=== PATIENT | female | born 1940 | race Caucasian/White ===

== ENCOUNTER 2021-06-30 12:03 | Emergency (ER) | payer OTHER ==
--- NOTE | 2021-06-30 14:28 | RAD REPORT ---
EXAM DESCRIPTION: RAD - Lumbar Spine 3 Views - 06/30/2021 1:50 pm CLINICAL HISTORY: Back pain FINDINGS: The alignment of the lumbar spine is satisfactory. No fracture or dislocation is seen. Mild spondylosis involves the lumbar spine. Bones are osteoporotic. 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
--- NOTE | 2021-06-30 14:29 | RAD REPORT ---
EXAM DESCRIPTION: RAD - Pelvis - 06/30/2021 1:50 pm CLINICAL HISTORY: Pelvic pain status post injury FINDINGS: No fracture or dislocation is seen. Bones are osteoporotic
--- NOTE | 2021-06-30 14:31 | RAD REPORT ---
EXAM DESCRIPTION: RAD - Knee Right 3 View - 06/30/2021 1:53 pm CLINICAL HISTORY: Right knee pain status post injury FINDINGS: No fracture or dislocation is seen. The bones are osteoporotic. Small joint effusion. Osteoporosis If patient continues have symptoms to suggest an occult fracture, ligamentous or meniscal injury MRI would be recommended
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
[2021-06-30 16:11] VITALS: BP 150/59; TEMP 97.1; O2SAT 100
== END 2021-06-30 16:06 | disposition home or self-care (01) ==
LOC: ER 12:03
DX: M23.8X1 Other internal derangements of right knee (principal); I10 Essential (primary) hypertension; V49.60XA Unspecified car occupant injured in collision with unspecified motor vehicles in traffic accident, initial encounter
CPT/HCPCS: 72100; 72170; 99283

== ENCOUNTER 2024-06-20 16:55 | Emergency (ER) | payer OTHER ==
--- NOTE | 2024-06-20 18:28 | RAD REPORT ---
EXAM:Tib Fib Left HISTORY: PAIN COMPARISON: None IMPRESSION: No fracture of the tibia or fibula is identified.
--- NOTE | 2024-06-20 18:29 | RAD REPORT ---
EXAM: 2 views of the left hip HISTORY: Left hip pain COMPARISON: None FINDINGS: 2 views of the left hip shows no evidence of acute fracture or dislocation. Mild left aceta bular degenerative changes are seen. No soft tissue swelling is present. IMPRESSION: No evidence of acute osseous abnormality.
--- NOTE | 2024-06-20 18:39 | EDPHYS ---
Physician Documentation [facility] Name: Osiris Barrow Age: 84 yrs Sex: Female : 1940 Arrival Date: 06/20/2024 Time: 16:55 Bed DX3 Private MD: ED Physician Marc Lewis HPI: 06/20 18:35 This 84 yrs old Unknown Female presents to ER via Ambulatory with complaints of Fall kb Injury, Hip Injury, Knee Injury - left. 18:35 Pt is an 84 year old female who presents for left hip pain after missing a step and kb falling around lunch time today. Pt has been ambulatory since fall. States she is going on a cruise this month and wants to make sure nothing is broken. Denies hitting head, loc. Historical: - Allergies: 17:32 No Known Allergies; cm10 - Home Meds: 17:32 levothyroxine 50 mcg oral capsule daily [Active]; losartan 50 mg oral tablet 1 tab cm10 daily [Active]; allopurinol 100 mg Oral tablet daily [Active]; pravastatin 10 mg oral tablet [Active]; zolpidem 10 mg Oral tablet [Active]; solifenacin 5 mg oral tablet [Active]; Lasix 20 mg Oral tablet [Active]; - PMHx: 17:32 diabetes mellitus; Hypertensive disorder; Hypothyroidism; Cirrhosis of liver; Gout; cm10 - Immunization history:: Adult Immunizations up to date. - Infectious Disease History:: Denies. - Social history:: Smoking status: unknown. ROS: 18:34 Constitutional: As per HPI kb Exam: 18:34 Constitutional: This is a well developed, well nourished patient who is awake, alert, kb and in no acute distress. Head/Face: Normocephalic, atraumatic. ENT: Moist Mucous membranes Cardiovascular: Regular rate Respiratory: Respirations even and unlabored. No increased work of breathing. Talking in full sentences Abdomen/GI: Soft, non-tender. No distention Skin: Warm, dry with normal turgor. Normal color. Neuro: Awake and alert, GCS 15, oriented to person, place, time, and situation. Moves all extremities. Normal gait. 18:34 Musculoskeletal/extremity: Extremities: grossly normal except: noted in the left hip: pain, tenderness, noted in the left knee and left saba: swelling, ROM: intact in all extremities, Circulation is intact in all extremities. Sensation intact. Weight bearing: able to fully bear weight, Vital Signs: 17:31 BP 137 / 57; Pulse 66; Resp 16; Temp 97.9; Pulse Ox 100% on R/A; Weight 79.38 kg; cm10 Height 5 ft. 5 in. ; Pain 7/10; 17:31 Body Mass Index 29.12 (79.38 kg, 165.1 cm) cm10 17:31 Pain Scale: Adult cm10 MDM: 16:58 Patient medically screened. kb 18:35 Differential diagnosis: contusion, fracture, sprain, strain. Data reviewed: vital kb signs, nurses notes. Historians other than the Patient: Daughter/Son: daughter . Counseling: I had a detailed discussion with the patient and/or guardian regarding the historical points, exam findings, and any diagnostic results supporting the discharge/admit diagnosis, radiology results, the need for outpatient follow up, a family practitioner, to return to the emergency department if symptoms worsen or persist or if there are any questions or concerns that arise at home. 06/20 17:36 Order name: Tib Fib Left XRAY; Complete Time: 18:33 kb 06/20 17:36 Order name: Hip Left 2 View XRAY; Complete Time: 18:33 kb Administered Medications: No medications were administered Disposition Summary: 06/20/24 18:38 Discharge Ordered Notes: Location: Home kb Condition: Stable kb Diagnosis - Fall (on) (from) other stairs and steps kb - Pain in left hip kb Followup: kb - With: Emergency Department - When: As needed - Reason: Worsening of condition Followup: kb - With: Private Physician - When: 2 - 3 days - Reason: Recheck today's complaints, Continuance of care, Re-evaluation by your physician Discharge Instructions: - Discharge Summary Sheet kb - Musculoskeletal Pain kb Forms: - Medication Reconciliation Form kb - Antibiotic Education kb - Prescription Opioid Use kb - Patient Portal Instructions kb - Leadership Thank You Letter kb Signatures: Dispatcher [employer] Lydia Sabillon, AMRIT-C MD DO [facility]-Martha Quijano, RN RN cm10
--- NOTE | 2024-06-20 18:39 | ER ---
Nurse's Notes [facility] Name: Osiris Barrow Age: 84 yrs Sex: Female : 1940 Arrival Date: 06/20/2024 Time: 16:55 Bed DX3 Private MD: Diagnosis: Fall (on) (from) other stairs and steps;Pain in left hip Presentation: 06/20 17:31 Chief complaint: Patient states: Walking down the steps and missed a step and fell. Pt cm10 denies hitting head. Pt complaining of pain to left knee and left hip. Coronavirus screen: Client denies travel out of the [place] in the last 14 days. Ebola Screen: Patient denies travel to an Ebola-affected area in the 21 days before illness onset. No symptoms or risks identified at this time. Initial Sepsis Screen: Does the patient meet any 2 criteria? No. Patient's initial sepsis screen is negative. Does the patient have a suspected source of infection? No. Patient's initial sepsis screen is negative. Risk Assessment: Do you want to hurt yourself or someone else? Patient reports no desire to harm self or others. Onset of symptoms was June 20, 2024. 17:31 Method Of Arrival: Ambulatory cm10 17:31 Acuity: BOB 4 cm10 Triage Assessment: 17:35 General: Appears in no apparent distress. comfortable, Behavior is calm, cooperative. cm10 Pain: Complains of pain in left hip and left knee. Neuro: No deficits noted. Level of Consciousness is awake, alert, obeys commands, Oriented to person, place, time, situation, Appropriate for age. Respiratory: No deficits noted. Airway is patent Respiratory effort is even, unlabored, Respiratory pattern is regular, symmetrical. Musculoskeletal: Reports pain in left hip and left knee. Historical: - Allergies: 17:32 No Known Allergies; cm10 - Home Meds: 17:32 levothyroxine 50 mcg oral capsule daily [Active]; losartan 50 mg oral tablet 1 tab cm10 daily [Active]; allopurinol 100 mg Oral tablet daily [Active]; pravastatin 10 mg oral tablet [Active]; zolpidem 10 mg Oral tablet [Active]; solifenacin 5 mg oral tablet [Active]; Lasix 20 mg Oral tablet [Active]; - PMHx: 17:32 diabetes mellitus; Hypertensive disorder; Hypothyroidism; Cirrhosis of liver; Gout; cm10 - Immunization history:: Adult Immunizations up to date. - Infectious Disease History:: Denies. - Social history:: Smoking status: unknown. Screenin:00 [facility] ED Fall Risk Assessment (Adult) History of falling in the last 3 months, cm10 including since admission Yes- single mechanical fall (1 pt) Confusion or Disorientation No (0 pts) Intoxicated or Sedated No (0 pts) Impaired Gait No (0 pts) Mobility Assist Device Used No (0 pt) Altered Elimination No (0 pt) Score/Fall Risk Level 0 - 2 = Low Risk Oriented to surroundings, Maintained a safe environment, Hourly rounding (assess needs \T\ fall precautionary measures) done. Abuse screen: Denies threats or abuse. Denies injuries from another. Nutritional screening: No deficits noted. Tuberculosis screening: No symptoms or risk factors identified. Vital Signs: 17:31 BP 137 / 57; Pulse 66; Resp 16; Temp 97.9; Pulse Ox 100% on R/A; Weight 79.38 kg; cm10 Height 5 ft. 5 in. ; Pain 7/10; 17:31 Body Mass Index 29.12 (79.38 kg, 165.1 cm) cm10 17:31 Pain Scale: Adult cm10 ED Course: 16:58 Patient arrived in ED. ra3 16:58 [facility]C [facility] kb 16:58 Marc Lewis MD is Attending Physician. kb 17:32 Triage completed. cm10 17:36 Arm band placed on Patient placed in waiting room. cm10 18:10 Tib Fib Left XRAY In Process Unspecified. EDMS 18:10 Hip Left 2 View XRAY In Process Unspecified. EDMS 19:00 Patient has correct armband on for positive identification. Provided Education on: cm10 Follow-up instructions. 19:00 No provider procedures requiring assistance completed. Patient did not have IV access cm10 during this emergency room visit. Administered Medications: No medications were administered Medication: 19:00 VIS not applicable for this client. cm10 Outcome: 18:38 Discharge ordered by . kb 19:00 Discharged to home ambulatory, with family, cm10 19:00 Condition: good 19:00 Discharge instructions given to patient, Instructed on discharge instructions, follow up and referral plans. Demonstrated understanding of instructions, follow-up care, 19:01 Patient left the ED. cm10 Signatures: Dispatcher [employer] Lydia Sabillon, Martha Marcelino RN RN cm10 [place] ra3
[2024-06-20 19:28] VITALS: BP 137/57; TEMP 97.9; O2SAT 100
== END 2024-06-20 19:01 | disposition home or self-care (01) ==
LOC: ER 16:55
DX: M25.552 Pain in left hip (principal); M25.562 Pain in left knee; W10.8XXA Fall (on) (from) other stairs and steps, initial encounter
CPT/HCPCS: 99282

== ENCOUNTER 2024-10-26 10:35 | Emergency (ER) | payer OTHER ==
[2024-10-26 12:03] LABS: SARS-CoV-2 Antigen CONTROL BLUE LINE VIS/BG OK; SARS-CoV-2 Antigen Rapid Res Negative (Negative)
[2024-10-26 12:09] LABS: Absolute Eosinophils 0.1 K/uL (0-0.5); Absolute Lymphocytes (CBC) 1.1 K/uL (0.7-4.9); Absolute Monocytes 0.7 K/uL (0.1-1.3); Absolute Neutrophil 3.9 K/uL (1.8-8.0); Basophils % 0.6 % (0-1.3); Eosinophils % 1.7 % (0-4.4); Hematocrit 34.7 % (36.0-45.0); Lymphocytes % 18.9 % (15.3-44.8); MCH 33.5 pg (27.0-35.0); MCHC 34.5 g/dL (32.0-36.0); MPV 7.8 fL (7.6-11.3); Monocytes % 11.8 % (3.3-12.3); Platelets 125 thou/uL (152-406); RBC Red Blood Cell Count 3.58 M/uL (3.86-4.86); Red Cell Distribution Width 16.3 % (12.1-15.2)
[2024-10-26 12:10] LABS: Sqamous Epithelial <5 /HPF (None Seen); Urine Bacteria None Seen /HPF (<20); Urine Bilirubin NEGATIVE (Negative); Urine Blood Negative (Negative); Urine Clarity Turbid (Clear); Urine Color Light-Yellow (Yellow); Urine Culture Reflex Order NOT NEEDED; Urine Glucose NEGATIVE (Negative); Urine Ketones NEGATIVE (Negative); Urine Microscopic Reflex YN ORDER UMIC; Urine Nitrite NEGATIVE (Negative); Urine Protein NEGATIVE (Negative); Urine RBC None Seen /HPF (None Seen); Urine Urobilinogen Normal (Normal); Urine WBC <5 /HPF (<5)
[2024-10-26 12:13] LABS: PT Prothrombin Time 13.7 SECONDS (9.4-12.5); Protime INR 1.31
--- NOTE | 2024-10-26 12:19 | RAD REPORT ---
EXAMINATION: US bilateral LOWER EXTREMITY VENOUS DOPPLER CLINICAL INDICATION: Leg swelling TECHNIQUE: Sonographic evaluation of the veins of the lower extremity bilaterally formed.Grayscale, c olor and spectral analysis performed on all vessels COMPARISON: No prior exam. FINDINGS: The common femoral, superficial femoral, greater saphenous, popliteal and posterior tibial veins bila terally are compressible and demonstrate augmentation. Doppler demonstrates good flow. IMPRESSION: No evidence of deep venous thrombosis involving either lower extremity
--- NOTE | 2024-10-26 12:23 | RAD REPORT ---
Procedure: Chest Pa And Lat (2 Views) HISTORY: Cough COMPARISON: 2022 FINDINGS: The lungs appear clear of acute infiltrate. No significant pleural effusion noted. The heart is mildly enlarged. IMPRESSION: No acute abnormality is displayed.
[2024-10-26 12:30] LABS: Albumin 2.6 g/dL (3.4-5.0); Albumin/Globulin Ratio 0.7 (1.1-1.8); Anion Gap 8.3 mEq/L (5.0-15.0); Bilirubin Direct 0.6 mg/dL (0-0.2); Bilirubin Indirect, Calculated 1.5 mg/dL (0.2-0.8); Bilirubin Total 2.1 mg/dL (0.2-1.0); Globulin 3.9 g/dL (2.3-3.5); Magnesium 1.8 mg/dL (1.6-2.4); Potassium 4.3 mEq/L (3.5-5.1); Protein, Total 6.5 g/dL (6.4-8.2); Troponin High Sensitivity 13.6 pg/mL (<58.9)
--- NOTE | 2024-10-26 13:46 | EDPHYS ---
Physician Documentation [facility] Name: Osiris Barrow Age: 84 yrs Sex: Female : 1940 Arrival Date: 10/26/2024 Time: 10:35 Bed 18 Private MD: ED Physician Marc Lewis HPI: 10/26 13:38 This 84 yrs old Female presents to ER via Ambulatory with complaints of svetlana Cough, Leg Swelling. 13:38 The patient or guardian reports cough, described as mild. Onset: The symptoms/episode svetlana began/occurred 3 day(s) ago. Historical: - Allergies: 10:48 No Known Allergies; jl7 - PMHx: 10:48 cirrhosis of liver; diabetes mellitus ; resolved; Gout; Hypertensive disorder; jl7 Hypothyroidism; - Immunization history:: Adult Immunizations unknown. - Infectious Disease History:: Denies. - Social history:: Smoking status: Patient denies any tobacco usage or history of. ROS: 13:38 Constitutional: Negative for fever, chills, and weight loss, Eyes: Negative for injury, svetlana pain, redness, and discharge, ENT: Negative for injury, pain, and discharge, Neck: Negative for injury, pain, and swelling, Cardiovascular: Negative for chest pain, palpitations, and edema, Abdomen/GI: Negative for abdominal pain, nausea, vomiting, diarrhea, and constipation, Back: Negative for injury and pain, : Negative for injury, bleeding, discharge, and swelling, Skin: Negative for injury, rash, and discoloration, Neuro: Negative for headache, weakness, numbness, tingling, and seizure, Psych: Negative for depression, anxiety, suicide ideation, homicidal ideation, and hallucinations, Allergy/Immunology: Negative for hives, rash, and allergies, Endocrine: Negative for neck swelling, polydipsia, polyuria, polyphagia, and marked weight changes, Hematologic/Lymphatic: Negative for swollen nodes, abnormal bleeding, and unusual bruising, 13:38 Respiratory: Positive for cough, with no reported sputum, 13:38 MS/extremity: Positive for swelling, of the right leg and left leg, Exam: 13:38 Constitutional: This is a well developed, well nourished patient who is awake, alert, svetlana and in no acute distress. Head/Face: Normocephalic, atraumatic. Eyes: Pupils equal round and reactive to light, extra-ocular motions intact. Lids and lashes normal. Conjunctiva and sclera are non-icteric and not injected. Cornea within normal limits. Periorbital areas with no swelling, redness, or edema. ENT: Nares patent. No nasal discharge, no septal abnormalities noted. Tympanic membranes are normal and external auditory canals are clear. Oropharynx with no redness, swelling, or masses, exudates, or evidence of obstruction, uvula midline. Mucous membranes moist. Neck: Trachea midline, no thyromegaly or masses palpated, and no cervical lymphadenopathy. Supple, full range of motion without nuchal rigidity, or vertebral point tenderness. No Meningismus. Chest/axilla: Normal chest wall appearance and motion. Nontender with no deformity. No lesions are appreciated. Cardiovascular: Regular rate and rhythm with a normal S1 and S2. No gallops, murmurs, or rubs. Normal PMI, no JVD. No pulse deficits. Abdomen/GI: Soft, non-tender, with normal bowel sounds. No distension or tympany. No guarding or rebound. No evidence of tenderness throughout. Back: No spinal tenderness. No costovertebral tenderness. Full range of motion. Skin: Warm, dry with normal turgor. Normal color with no rashes, no lesions, and no evidence of cellulitis. Neuro: Awake and alert, GCS 15, oriented to person, place, time, and situation. Cranial nerves II-XII grossly intact. Motor strength 5/5 in all extremities. Sensory grossly intact. Cerebellar exam normal. Normal gait. Psych: Awake, alert, with orientation to person, place and time. Behavior, mood, and affect are within normal limits. 13:38 ECG was reviewed by the Attending Physician. 13:38 Respiratory: the patient does not display signs of respiratory distress, Respirations: normal, no acute changes, labored breathing, is not present, Breath sounds: are clear throughout, no bronchial sounds, no decreased breath sounds, no rales, rhonchi, no stridor, no wheezing, Respiratory rate: 16 13:38 Musculoskeletal/extremity: Weight bearing: able to fully bear weight, without difficulty, DVT Exam: no pain, no tenderness, negative Homans' sign noted on exam, no appreciated bluish discoloration, no erythema, no increased warmth, swelling, Vital Signs: 10:47 BP 155 / 69; Pulse 80; Resp 17; Temp 98.6; Pulse Ox 95% ; Weight 78.02 kg; Height 5 ft. jl7 4 in. ; Pain 0/10; 11:27 BP 191 / 80; Pulse 76; Resp 16 S; Pulse Ox 98% on R/A; Pain 0/10; kc6 14:02 BP 197 / 77; Pulse 65; Resp 18 S; Pulse Ox 100% on R/A; Pain 0/10; kc6 10:47 Body Mass Index 29.52 (78.02 kg, 162.56 cm) jl7 10:47 Pain Scale: Adult jl7 11:27 Pain Scale: Adult kc6 14:02 Pain Scale: Adult kc6 MDM: 10:50 Medical Screening Exam initiated svetlana 13:40 Differential diagnosis: contusion. Data reviewed: vital signs, nurses notes, lab test [facility] result(s), EKG, radiologic studies, doppler, plain films. Consideration of Admission/Observation Escalation of care including admission/observation considered. Independent interpretation of the following test(s) in the Emergency Department EKG: See my EKG interpretation above. Test considered but Not performed: Ultrasound no 2 d echo. Historians other than the Patient: pt well informed. Care significantly affected by the following chronic conditions: Diabetes, Hypertension, Obesity, Liver Disease, gout, cirrhosis. Counseling: I had a detailed discussion with the patient and/or guardian regarding the historical points, exam findings, and any diagnostic results supporting the discharge/admit diagnosis, the presence of at least one elevated blood pressure reading (>120/80) during this emergency department visit, lab results, radiology results, the need for outpatient follow up, for definitive care, a family practitioner, a auto tester. 10/26 10:51 Order name: Flu; Complete Time: 13:30 [facility] 10/26 10:51 Order name: SARS RAPID; Complete Time: 13:30 [facility] 10/26 11:32 Order name: Basic Metabolic Panel; Complete Time: 13:30 svetlana 10/26 11:32 Order name: CBC with Diff; Complete Time: 13:30 10/26 11:32 Order name: LFT's; Complete Time: 13:30 10/26 11:32 Order name: Magnesium; Complete Time: 13:30 10/26 11:32 Order name: NT PRO-BNP; Complete Time: 13:30 [facility] 10/26 11:32 Order name: PT-INR; Complete Time: 13:30 [facility] 10/26 11:32 Order name: Troponin HS; Complete Time: 13:30 [facility] 10/26 11:32 Order name: AMMONIA; Complete Time: 13:30 [facility] 10/26 11:32 Order name: Lipase; Complete Time: 13:30 [facility] 10/26 11:32 Order name: Urinalysis w/ reflexes; Complete Time: 13:30 [facility] 10/26 10:51 Order name: Chest Pa And Lat (2 Views) XRAY; Complete Time: 13:30 [facility] 10/26 11:32 Order name: US Extremity Venous W Compression Ahsan; Complete Time: 13:30 [facility] 10/26 11:32 Order name: EKG - Nurse/Tech; Complete Time: 11:42 [facility] 10/26 11:32 Order name: IV Saline Lock; Complete Time: 11:58 [facility] 10/26 11:32 Order name: Labs collected and sent; Complete Time: 11:58 [facility] 10/26 11:32 Order name: O2 Per Protocol; Complete Time: 11:42 [facility] 10/26 11:32 Order name: O2 Sat Monitoring; Complete Time: 11:42 [facility] EC:38 Rate is 71 beats/min. Rhythm is regular. QRS [place] is Normal. [place] interval is normal. QRS svetlana interval is normal. QT interval is normal. No Q waves. T waves are Normal. No ST changes noted. Clinical impression: Normal ECG and No evidence of ischemia. Interpreted by me. Reviewed by me. Administered Medications: 14:02 Drug: AZITHromycin PO 500 mg PO once Route: PO; kc6 Disposition Summary: 10/26/24 13:45 Discharge Ordered Notes: Location: Home svetlana Problem: new svetlana Symptoms: have improved svetlana Condition: Fair svetlana Diagnosis - Cough svetlana - Acute upper respiratory infection, unspecified svetlana - Edema, unspecified svetlana - Unspecified cirrhosis of liver svetlana Followup: svetlana - With: Private Physician - When: 2 - 3 days - Reason: Recheck today's complaints, Continuance of care, Re-evaluation by your physician Followup: svetlana - With: Aryan Crowe MD - When: 2 - 3 days - Reason: Recheck today's complaints, Re-evaluation by your physician Discharge Instructions: - Discharge Summary Sheet svetlana - Cirrhosis svetlana - Edema svetlana - Cool Mist Vaporizer svetlana - Upper Respiratory Infection, Adult, Qozu-lv-Jaax svetlana - Edema, Xeeh-gg-Rtth svetlana - Cough, Adult, Gjwn-iv-Yveq svetlana - Cough, Adult svetlana Forms: - Medication Reconciliation Form svetlana - Antibiotic Education svetlana - Prescription Opioid Use svetlana - Patient Portal Instructions svetlana - Leadership Thank You Letter [facility] Prescriptions: - Tessalon Perles 100 mg Oral capsule - take 2 capsule ORAL route every 8 hours As needed; 30 capsule; Refills: 0, svetlana Product Selection Permitted - Zithromax Z-Gerard 250 mg Oral Tablet - take 1 tablet ORAL route as directed for 5 days Day 1 - take two (2) tablets svetlana one time. Day 2, 3, 4 , 5 take one (1) tablet once daily.; 6 tablet; Refills: 0, Product Selection Permitted Signatures: Dispatcher [employer] EDMS Marc Lewis MD MD cha Leal, Jahala, RN RN jl7 Maria Victoria Quesada RN RN kc6 Corrections: (The following items were deleted from the chart) 10:51 10:51 Influenza Screen (A \T\ B)+BA.LAB.BRZ ordered. EDMS EDMS 10:51 10:51 SARS-COV-2 Antigen Rapid+I.LAB.BRZ ordered. EDMS EDMS 11:33 11:33 BASIC METABOLIC PANEL+C.LAB.BRZ ordered. EDMS EDMS 11:33 11:33 CBC+H.LAB.BRZ ordered. EDMS EDMS 11:33 11:33 HEPATIC FUNCTION+C.LAB.BRZ ordered. EDMS EDMS 11:33 11:33 MAGNESIUM+C.LAB.BRZ ordered. EDMS EDMS 11:33 11:33 PROBNP+C.LAB.BRZ ordered. EDMS EDMS 11:33 11:33 PROTIME (+INR)+COAG.LAB.BRZ ordered. EDMS EDMS 11:33 11:33 Troponin High Sensitivity+C.LAB.BRZ ordered. EDMS EDMS 11:33 11:33 AMMONIA+C.LAB.BRZ ordered. EDMS EDMS 11:33 11:33 LIPASE+C.LAB.BRZ ordered. EDMS EDMS 11:33 11:33 Urinalysis+U.LAB.BRZ ordered. EDMS EDMS 11:33 11:33 Extrem Venous W Compression Ahsan+US.RAD.BRZ ordered. EDMS EDMS 13:51 11:32 Cardiac monitoring ordered. svetlana kc6
--- NOTE | 2024-10-26 13:46 | ER ---
Nurse's Notes [facility] Name: Osiris Barrow Age: 84 yrs Sex: Female : 1940 Arrival Date: 10/26/2024 Time: 10:35 Bed 18 Private MD: Diagnosis: Cough;Acute upper respiratory infection, unspecified;Edema, unspecified;Unspecified cirrhosis of liver Presentation: 10/26 10:47 Chief complaint: Patient states: JUANITA leg swelling started Thursday, cough started last jl7 night, denies fever, denies SOB. Coronavirus screen: At this time, the client does not indicate any symptoms associated with coronavirus-19. Ebola Screen: No symptoms or risks identified at this time. Initial Sepsis Screen: Does the patient meet any 2 criteria? No. Patient's initial sepsis screen is negative. Does the patient have a suspected source of infection? No. Patient's initial sepsis screen is negative. Risk Assessment: Do you want to hurt yourself or someone else? Patient reports no desire to harm self or others. Onset of symptoms is unknown. 10:47 Method Of Arrival: Ambulatory jl7 10:47 Acuity: BOB 3 jl7 Triage Assessment: 10:48 General: Appears in no apparent distress. comfortable, Behavior is calm, cooperative, jl7 appropriate for age. Pain: Denies pain. Cardiovascular: Edema is 2+ to left ankle, left foot, right ankle and right foot. Historical: - Allergies: 10:48 No Known Allergies; jl7 - PMHx: 10:48 cirrhosis of liver; diabetes mellitus ; resolved; Gout; Hypertensive disorder; jl7 Hypothyroidism; - Immunization history:: Adult Immunizations unknown. - Infectious Disease History:: Denies. - Social history:: Smoking status: Patient denies any tobacco usage or history of. Screenin:28 [facility] ED Fall Risk Assessment (Adult) History of falling in the last 3 months, kc6 including since admission No falls in past 3 months (0 pts) Confusion or Disorientation No (0 pts) Intoxicated or Sedated No (0 pts) Impaired Gait No (0 pts) Mobility Assist Device Used No (0 pt) Altered Elimination No (0 pt) Score/Fall Risk Level 0 - 2 = Low Risk Oriented to surroundings, Maintained a safe environment, Educated pt \T\ family on fall prevention, incl call for assistance when getting out of bed. Abuse screen: Denies threats or abuse. Denies injuries from another. Nutritional screening: No deficits noted. Tuberculosis screening: No symptoms or risk factors identified. Assessment: 11:45 General: Appears in no apparent distress. comfortable, well groomed, well developed, kc6 Behavior is calm, cooperative, appropriate for age. Pain: Denies pain. Neuro: Level of Consciousness is awake, alert, obeys commands, Oriented to person, place, time, situation, Appropriate for age. Cardiovascular: Denies chest pain, shortness of breath, Heart tones S1 S2 present Capillary refill < 3 seconds Edema is 3+ to left midcalf, left ankle, right midcalf and right ankle pitting to left midcalf, left ankle, right midcalf and right ankle Rhythm is sinus rhythm. Respiratory: Reports cough that is persistent Airway is patent Trachea midline Respiratory effort is even, unlabored, Respiratory pattern is regular, symmetrical. GI: No signs and/or symptoms were reported involving the gastrointestinal system. : No signs and/or symptoms were reported regarding the genitourinary system. EENT: No signs and/or symptoms were reported regarding the EENT system. Derm: No signs and/or symptoms reported regarding the dermatologic system. Skin is intact, is healthy with good turgor, Skin is pink, warm \T\ dry. Musculoskeletal: Circulation, motion, and sensation intact. Range of motion: intact in all extremities, Swelling present in right leg and left leg. 13:32 Reassessment: Patient appears in no apparent distress at this time. No changes from kc6 previously documented assessment. Patient and/or family updated on plan of care and expected duration. Pain level reassessed. Patient is alert, oriented x 3, equal unlabored respirations, skin warm/dry/pink. Vital Signs: 10:47 BP 155 / 69; Pulse 80; Resp 17; Temp 98.6; Pulse Ox 95% ; Weight 78.02 kg; Height 5 ft. jl7 4 in. ; Pain 0/10; 11:27 BP 191 / 80; Pulse 76; Resp 16 S; Pulse Ox 98% on R/A; Pain 0/10; kc6 14:02 BP 197 / 77; Pulse 65; Resp 18 S; Pulse Ox 100% on R/A; Pain 0/10; kc6 10:47 Body Mass Index 29.52 (78.02 kg, 162.56 cm) jl7 10:47 Pain Scale: Adult jl7 11:27 Pain Scale: Adult kc6 14:02 Pain Scale: Adult kc6 ED Course: 10:37 Patient arrived in ED. mr 10:48 Triage completed. jl7 10:48 Arm band placed on right wrist. jl7 10:49 Marc Lewis MD is Attending Physician. [facility] 10:49 Patient placed in waiting room, Patient notified of wait time. jl7 11:24 Maria Victoria Quesada, LESTER is Primary Nurse. kc6 11:28 Patient has correct armband on for positive identification. Bed in low position. Call kc6 light in reach. Side rails up X 1. Pulse ox on. NIBP on. Door closed. Noise minimized. Lights dimmed. Pillow given. 11:28 Patient maintains SpO2 saturation greater than 95% on room air. kc6 11:45 EKG done, by ED staff, reviewed by Marc Lewis MD. kc6 11:58 AMMONIA Sent. ld1 11:58 Urinalysis w/ reflexes Sent. ld1 11:58 Inserted saline lock: 20 gauge in right antecubital area, using aseptic technique. ld1 Blood collected. Flushed with 10 mL NS. 12:15 US Extremity Venous W Compression Juanita In Process Unspecified. EDMS 12:18 Chest Pa And Lat (2 Views) XRAY In Process Unspecified. EDMS 13:46 Aryan Crowe MD is Referral Physician. [facility] 14:03 No provider procedures requiring assistance completed. IV discontinued, intact, kc6 bleeding controlled, No redness/swelling at site. Pressure dressing applied. Administered Medications: 14:02 Drug: AZITHromycin PO 500 mg PO once Route: PO; kc6 Medication: 14:03 VIS not applicable for this client. kc6 Outcome: 13:45 Discharge ordered by . svetlana 14:03 Discharged to home ambulatory, kc6 14:03 Condition: good 14:03 Discharge instructions given to patient, Instructed on discharge instructions, follow up and referral plans. medication usage, Demonstrated understanding of instructions, follow-up care, medications, Prescriptions given X 2, 14:03 Patient left the ED. kc6 Signatures: Dispatcher [employer] EDMS Marc Lewis MD MD cha Rivera, Mary, Reg Reg Sunil Lopez RN RN jl7 Mare Escamilla, RN RN ld1 Maria Victoria Quesada, RN RN kc6
[2024-10-26] MEDS ORDERED: AZITHROMYCIN 250 MG TAB ONE (13:54)
[2024-10-26 14:47] VITALS: TEMP 98.6
[2024-10-26 14:59] VITALS: BP 197/77; O2SAT 100
== END 2024-10-26 14:03 | disposition home or self-care (01) ==
LOC: ER 10:35
DX: J06.9 Acute upper respiratory infection, unspecified (principal); R60.9 Edema, unspecified; K74.60 Unspecified cirrhosis of liver; I10 Essential (primary) hypertension; Z11.52 Encounter for screening for COVID-19
CPT/HCPCS: 36415; 71046; 80048; 80076; 81001; 82140; 83690; 83735; 83880; 84484; 85025; 85610; 87804; 87811; 93005; 93970

== ENCOUNTER 2025-04-27 11:03 | Emergency (ER) | payer OTHER ==
--- NOTE | 2025-04-27 12:17 | RAD REPORT ---
EXAM: CT brain without contrast HISTORY: Fall with head injury COMPARISON: None TECHNIQUE: Multiple contiguous axial images were obtained and a CT of the brain without contrast.. Sagittal and coronal reconstruction performed. Automated exposure control, adjustment of the mA and/or kV according to patient size, and/or iterative reconstruction. Unless otherwise specified, incidental f indings do not require dedicated imaging follow-up FINDINGS: An intracranial bleed is not seen Ventricles are normal caliber No extra-axial fluid collection noted No significant hypodensity within the brain No fluid within the visualized sinuses or mastoids noted. IMPRESSION: No acute intracranial abnormality noted. If the patient continues to have symptoms to suggest an acute intracranial abnormality then MRI of th e brain would be recommended.
--- NOTE | 2025-04-27 12:17 | RAD REPORT ---
Exam:Wrist Right 3 View HISTORY: Right wrist pain FINDINGS: Impaction fracture distal radius. No dislocation. Osteoporosis.
[2025-04-27] MEDS ORDERED: HYDROCODONE/APAP 5/325 MG TAB ONE (12:55)
--- NOTE | 2025-04-27 13:18 | EDPHYS ---
Physician Documentation [facility] Name: Osiris Barrow Age: 84 yrs Sex: Female : 1940 Arrival Date: 04/27/2025 Time: 11:03 Bed 26 Private MD: ED Physician Feng Escamilla HPI: 04/27 11:20 This 84 yrs old Female presents to ER via Unassigned with complaints of fall. ms3 11:20 84-year-old female with past medical history of fatty liver, hypertension, diabetes ms3 presents to the emergency department via [facility] status post fall. Patient states she was in her backyard when her dog jumped onto her causing her to fall backwards and hit the fence. Patient used her right hand to break her fall and is currently having right wrist pain and swelling. EMS notes patient having swelling and tenderness to palpation of right wrist. Patient notes her tetanus was updated in 2021. Historical: - Allergies: 11:22 No Known Allergies; db - PMHx: 11:22 cirrhosis of liver; diabetes mellitus ; resolved; Gout; Hypertensive disorder; db Hypothyroidism; - Immunization history:: Adult Immunizations unknown, Last tetanus immunization: unknown. - Infectious Disease History:: Denies. - Social history:: Smoking status: unknown. ROS: 11:20 Constitutional: Negative for fever, and chills. Cardiovascular: Negative for chest ms3 pain, and palpitations. Respiratory: Negative for shortness of breath, cough, wheezing, and pleuritic chest pain, Abdomen/GI: Negative for abdominal pain, nausea, vomiting, diarrhea, and constipation, 11:20 MS/extremity: Positive for pain, swelling, tenderness, of the Right wrist, 11:20 Skin: Positive for abrasion(s), of the Right elbow, Exam: 11:20 Constitutional: This is a well developed, well nourished patient who is awake, alert, ms3 and in no acute distress. Cardiovascular: Regular rate and rhythm with a normal S1 and S2. No gallops, murmurs, or rubs. Normal PMI, no JVD. No pulse deficits. Respiratory: Lungs have equal breath sounds bilaterally, clear to auscultation and percussion. No rales, rhonchi or wheezes noted. No increased work of breathing, no retractions or nasal flaring. Abdomen/GI: Soft, non-tender, with normal bowel sounds. No distension or tympany. No guarding or rebound. No evidence of tenderness throughout. 11:20 Musculoskeletal/extremity: Extremities: noted in the Right wrist: decreased ROM, pain, swelling, tenderness, 11:20 Skin: injury, abrasion(s), small abrasion noted, of the Right elbow, Vital Signs: 11:06 BP 145 / 60; Pulse 83; Resp 18; Temp 98.1; Pulse Ox 95% ; Weight 82.55 kg; Height 5 ft. db 4 in. ; 11:06 Body Mass Index 31.24 (82.55 kg, 162.56 cm) db [place] Coma Score: 11:24 Eye Response: spontaneous(4). Motor Response: obeys commands(6). Verbal Response: db oriented(5). Total: 15. Trauma Score (Adult): 11:24 Eye Response: spontaneous(1); Verbal Response: oriented(1); Motor Response: obeys db commands(2); Systolic BP: > 89 mm Hg(4); Respiratory Rate: 10 to 29 per min(4); [place] Score: 15; Trauma Score: 12 MDM: 11:12 Medical Screening Exam initiated ms3 11:20 Differential diagnosis: abrasion, contusion, fracture, sprain, strain. ms3 13:17 Data reviewed: vital signs, nurses notes, radiologic studies, and as a result, I will ms3 discharge patient. I considered the following discharge prescriptions or medication management in the emergency department Medications were administered in the Emergency Department. See MAR. Independent interpretation of the following test(s) in the Emergency Department X-Ray: My interpretation is Right wrist x-ray images reviewed by me reveal distal radius fracture. Historians other than the Patient: EMS: [facility]. Counseling: I had a detailed discussion with the patient and/or guardian regarding the historical points, exam findings, and any diagnostic results supporting the discharge/admit diagnosis, radiology results, the need for outpatient follow up, to return to the emergency department if symptoms worsen or persist or if there are any questions or concerns that arise at home. Special discussion: I discussed with the patient/guardian in detail that at this point there is no indication for admission to the hospital. It is understood, however, that if the symptoms persist or worsen the patient needs to return immediately for re-evaluation. ED course: Discussed necessity of follow-up with orthopedics with patient. Patient understands and agrees with plan. All questions were answered. Return precautions discussed include worsening symptoms, or any other concerns. 04/27 11:13 Order name: Wrist Right 3 View XRAY; Complete Time: 12:28 ms3 04/27 11:13 Order name: CT Head Brain wo Cont; Complete Time: 12:28 ms3 Administered Medications: 12:57 Drug: HYDROcodone-acetaminophen PO 5 mg-325 mg 1 tabs PO once Route: PO; db 13:53 Follow up: Response: No adverse reaction db Disposition Summary: 04/27/25 13:17 Discharge Ordered Notes: Location: Home ms3 Condition: Stable ms3 Diagnosis - Distal Radius Fracture ms3 - Fall on same level, unspecified ms3 - Essential (primary) hypertension ms3 Followup: ms3 - With: Adelfo Thomas MD - When: 2 - 3 days - Reason: Recheck today's complaints Discharge Instructions: - Discharge Summary Sheet ms3 - Fall Prevention in the Home, Adult ms3 - Hypertension, Adult ms3 - DASH Eating Plan ms3 Forms: - Medication Reconciliation Form ms3 - Antibiotic Education ms3 - Prescription Opioid Use ms3 - Patient Portal Instructions ms3 - Leadership Thank You Letter ms3 Prescriptions: - Tramadol 50 mg Oral Tablet - take 1 tablet ORAL route every 8 hours as needed; 12 tablet; Refills: 0, ms3 Product Selection Permitted Signatures: Dispatcher [employer] EDMS Feng Escamilla DO DO ms3 Kathy Bermudez, RN RN db Corrections: (The following items were deleted from the chart) 11:13 11:13 Wrist Right 3 View+RAD.RAD.BRZ ordered. EDMS EDMS 11:13 11:13 Head Brain Wo Cont+CT.RAD.BRZ ordered. EDMS EDMS
--- NOTE | 2025-04-27 13:18 | ER ---
Nurse's Notes [facility] Name: Osiris Barrow Age: 84 yrs Sex: Female : 1940 Arrival Date: 04/27/2025 Time: 11:03 Bed 26 Private MD: Diagnosis: Distal Radius Fracture;Fall on same level, unspecified;Essential (primary) hypertension Presentation: 04/27 11:06 Chief complaint: EMS states: KNOCKED DOWN BY DOG. FELL HIT HEAD AND INJURED RIGHT ARM. db DENIES LOC. Coronavirus screen: Client denies travel out of the [place] in the last 14 days. At this time, the client does not indicate any symptoms associated with coronavirus-19. Ebola Screen: Patient negative for fever greater than or equal to 101.5 degrees Fahrenheit, and additional compatible Ebola Virus Disease symptoms Patient denies exposure to infectious person. Patient denies travel to an Ebola-affected area in the 21 days before illness onset. No symptoms or risks identified at this time. Initial Sepsis Screen: Does the patient meet any 2 criteria? No. Patient's initial sepsis screen is negative. Does the patient have a suspected source of infection? No. Patient's initial sepsis screen is negative. Risk Assessment: Do you want to hurt yourself or someone else? Patient reports no desire to harm self or others. Onset of symptoms was April 27, 2025. Care prior to arrival: Splint applied. 11:06 Method Of Arrival: EMS: [facility] db 11:06 Acuity: BOB 3 db Triage Assessment: 11:22 General: Appears in no apparent distress. comfortable, Behavior is calm, cooperative. db Pain: Complains of pain in right arm. Neuro: Level of Consciousness is awake, alert, obeys commands, Oriented to person, place, time, situation. Musculoskeletal: Circulation, motion, and sensation intact. Capillary refill < 3 seconds, Range of motion: limited in right wrist Reports pain in right arm. 11:22 Musculoskeletal: Reports. db Historical: - Allergies: 11: No Known Allergies; db - PMHx: 11:22 cirrhosis of liver; diabetes mellitus ; resolved; Gout; Hypertensive disorder; db Hypothyroidism; - Immunization history:: Adult Immunizations unknown, Last tetanus immunization: unknown. - Infectious Disease History:: Denies. - Social history:: Smoking status: unknown. Screenin:24 [facility] ED Fall Risk Assessment (Adult) History of falling in the last 3 months, db including since admission Yes- single mechanical fall (1 pt) Confusion or Disorientation No (0 pts) Intoxicated or Sedated No (0 pts) Impaired Gait No (0 pts) Mobility Assist Device Used No (0 pt) Altered Elimination No (0 pt) Score/Fall Risk Level 0 - 2 = Low Risk Oriented to surroundings, Maintained a safe environment. Abuse screen: Denies threats or abuse. Denies injuries from another. Nutritional screening: No deficits noted. Tuberculosis screening: No symptoms or risk factors identified. Assessment: 11:24 Reassessment: SEE TRIAGE FOR INITIAL ASSESSMENT. db 11:37 Reassessment: RADIOLOGY AT PATIENT BEDSIDE. db 12:30 Reassessment: Patient appears in no apparent distress at this time. Patient and/or db family updated on plan of care and expected duration. Pain level reassessed. Patient is alert, oriented x 3, equal unlabored respirations, skin warm/dry/pink. 13:35 Reassessment: Patient appears in no apparent distress at this time. Patient and/or db family updated on plan of care and expected duration. Pain level reassessed. Patient is alert, oriented x 3, equal unlabored respirations, skin warm/dry/pink. General: Appears in no apparent distress. comfortable, Behavior is calm, cooperative, SPLINT APPLIED. Neuro: Level of Consciousness is awake, alert, obeys commands, Oriented to person, place, time, situation. Respiratory: Airway is patent Respiratory effort is even, unlabored, Respiratory pattern is regular, symmetrical. Vital Signs: 11:06 BP 145 / 60; Pulse 83; Resp 18; Temp 98.1; Pulse Ox 95% ; Weight 82.55 kg; Height 5 ft. db 4 in. ; 11:06 Body Mass Index 31.24 (82.55 kg, 162.56 cm) db Irving Coma Score: 11:24 Eye Response: spontaneous(4). Motor Response: obeys commands(6). Verbal Response: db oriented(5). Total: 15. Trauma Score (Adult): 11:24 Eye Response: spontaneous(1); Verbal Response: oriented(1); Motor Response: obeys db commands(2); Systolic BP: > 89 mm Hg(4); Respiratory Rate: 10 to 29 per min(4); Irving Score: 15; Trauma Score: 12 ED Course: 11:11 Patient arrived in ED. 6 11:12 Feng Escamilla DO is Attending Physician. ms3 11:16 Kathy Bermudez, RN is Primary Nurse. db 11:22 Triage completed. db 11:22 Arm band placed on Patient placed in an exam room. db 12:05 Wrist Right 3 View XRAY In Process Unspecified. EDMS 12:07 CT Head Brain wo Cont In Process Unspecified. EDMS 13:05 Patient has correct armband on for positive identification. Bed in low position. Call db light in reach. Side rails up X 1. Provided Education on: SPLINT. Pulse ox on. NIBP on. Pillow given. 13:05 Dressings: Kerlix X 1; right arm non-adherent dressing x 1 right arm. Wound care: db located on right arm Patient tolerated well. 13:16 Adelfo Thomas MD is Referral Physician. ms3 13:53 No provider procedures requiring assistance completed. Patient did not have IV access ss during this emergency room visit. Orthoglass splint: Sugar tong splint applied on right arm. Sling applied to right arm. Administered Medications: 12:57 Drug: HYDROcodone-acetaminophen PO 5 mg-325 mg 1 tabs PO once Route: PO; db 13:53 Follow up: Response: No adverse reaction db Medication: 11:37 VIS not applicable for this client. db Outcome: 13:17 Discharge ordered by . ms3 13:53 Discharged to home via wheelchair, with family, ss 13:53 Condition: good 13:53 Discharge instructions given to patient, family, Instructed on discharge instructions, follow up and referral plans. medication usage, Demonstrated understanding of instructions, follow-up care, medications, Prescriptions given X 1, 13:54 Patient left the ED. ss Signatures: Dispatcher [employer] EDMS Brigid Jean, LESTER RN Feng Escamilla DO DO ms3 Kathy Bermudez, LESTER RN db Cori Alejo 6
[2025-04-27 15:18] VITALS: BP 145/60; TEMP 98.1; O2SAT 95
== END 2025-04-27 13:54 | disposition home or self-care (01) ==
LOC: ER 11:03
DX: S52.501A Unspecified fracture of the lower end of right radius, initial encounter for closed fracture (principal); W18.30XA Fall on same level, unspecified, initial encounter; I10 Essential (primary) hypertension
CPT/HCPCS: 70450; 99284

== ENCOUNTER 2025-05-09 05:44 | Day surgery (SDC) | payer OTHER ==
--- NOTE | 2025-05-04 10:00 | RAD REPORT ---
Procedure: Chest Pa And Lat (2 Views) HISTORY: Preop COMPARISON: October 2014 FINDINGS: The lungs appear clear of acute infiltrate. No significant pleural effusion noted. The heart is normal size. IMPRESSION: No acute abnormality is displayed.
[2025-05-04 10:01] LABS: Absolute Lymphocytes (CBC) 1.4 K/uL (0.7-4.9); Hematocrit 36.9 % (36.0-45.0); Hemoglobin 12.6 g/dL (12.0-15.0); MCH 32.8 pg (27.0-35.0); MCHC 34.1 g/dL (32.0-36.0); MCV 96.1 fL (80-100); MPV 8.0 fL (7.6-11.3); Nucleated RBC Absolute Count 0.0 (0-0); Nucleated Red Blood Cells % 0.0 % (0-0); RBC Red Blood Cell Count 3.85 M/uL (3.86-4.86); White Blood Count 4.00 thou/uL (4.3-10.9)
[2025-05-04 10:10] LABS: PT Prothrombin Time 14.5 SECONDS (10-13.0); Protime INR 1.29
[2025-05-04 10:11] LABS: PTT, Activated Partial Thromb 38.3 SECONDS (27.2-37.4)
[2025-05-04 10:18] LABS: Anion Gap 10.3 mEq/L (5.0-15.0); BUN Blood Urea Nitrogen 17.0 mg/dL (7-18); Glucose Level 117.0 mg/dL (74-106); Potassium 4.3 mEq/L (3.5-5.1)
[2025-05-09] MEDS ORDERED: LIDOCAINE 1% MPF 5 ML VIAL ONE (06:08)
[2025-05-09] MEDS ORDERED: FENTANYL CITR 100 MCG/2 ML ONE (06:09)
[2025-05-09] MEDS ORDERED: BUPIVACAINE 0.25% PF 10 ML VIAL ONE (06:09)
[2025-05-09] MEDS ORDERED: BUPIVACAINE 0.5% PF 10 ML VIAL ONE (06:09)
[2025-05-09] MEDS ORDERED: EPINEPHRINE 1 MG/ML VIAL ONE (06:10)
[2025-05-09] MEDS: Ringers Lactate 1,000 ML IV ONE ×2 (06:25→09:00)
[2025-05-09] MEDS ORDERED: LIDOCAINE 2% MPF 5 ML VIAL ONE (07:08)
[2025-05-09] MEDS: CEFAZOLIN SODIUM 2 GM/VIAL ONE (07:30)
[2025-05-09] MEDS ORDERED: ONDANSETRON 4 MG/2 ML VIAL ONE (08:43)
[2025-05-09] MEDS ORDERED: Mastisol Adhesive Liq ONE (09:00)
--- NOTE | 2025-05-09 09:25 | P.BOP ---
Preoperative diagnosis: Right distal radius fracture Postoperative diagnosis: Same Primary procedure: Open reduction internal fixation three part right distal radius fracture Supervisor Pleating: NONE,NONE Estimated blood loss: 5 cc Specimen: None Findings: See dictation Anesthesia: General Complications: None Implants: Acumed 3-hole distal radius locking plate Fluids & blood products: Per anesthesia record Transferred to: Recovery Room Condition: Good
--- NOTE | 2025-05-09 10:16 | RAD REPORT ---
EXAM: XR Wrist Right 2 View HISTORY: [facility] MAIN AP LAT R WRIST S/P ORIF R DISTAL RADIUS FX PACU 5 COMPARISON: 04/27/2025 TECHNIQUE: 3 views of the right wrist. FINDINGS: Sequelae of anterior plate and screw fixation of the comminuted distal radius fracture. Ali gnment of the fracture fragments is partially improved. Radiocarpal and radioulnar articulations are well aligned. Stable degenerative changes of the intercarpal joints and thumb base. Soft tissue s welling about the distal forearm and wrist. Bipolar splint somewhat limits evaluation. IMPRESSION: Sequelae of internal fixation known distal radius fracture as above.
[2025-05-09 11:08] VITALS: BP 138/57; TEMP 97.4; O2SAT 95
--- NOTE | 2025-05-10 12:20 | RAD REPORT ---
EXAM: Fluoroscopy use, Fluoroscopy <1 Hour HISTORY: ORIF RT WRIST COMPARISON: None FINDINGS: A total of 2 images were sent to PACS, during a fluoroscopically guided distal radial ORIF. No radiologist was involved in protocoling or performance of the study, and no radiologist was present for the duration of the procedure. No interpretation of the saved images will be provided. Total fluoroscopy time: 13.4 s. Cumulative dose: Not provided. IMPRESSION: Documentation of fluoroscopy use as above.
== END 2025-05-09 11:02 | disposition home or self-care (01) ==
LOC: PRE 05:44 → OR 11:02
PROVIDERS: ATTEND Orthopaedic Surgery Sports Medicine
PROC: 0PSH04Z Reposition Right Radius with Internal Fixation Device, Open Approach (ICD-10-PCS; principal; 2025-05-09 07:30)
DX: S52.571A Other intraarticular fracture of lower end of right radius, initial encounter for closed fracture (principal); E11.9 Type 2 diabetes mellitus without complications; E03.9 Hypothyroidism, unspecified; E78.2 Mixed hyperlipidemia; I10 Essential (primary) hypertension; M25.531 Pain in right wrist; Z85.3 Personal history of malignant neoplasm of breast
CPT/HCPCS: 93005; 85025; 80048; 36415; 85610; 85730; 71046; 73100; 25609; J2704 ×3; J2003 ×2; J3010; J1100; J0171; J2405; J7120 ×2; C1713 ×5; 76000

== ENCOUNTER 2025-05-12 11:43 | Inpatient (IN) | payer OTHER ==
[2025-05-12 12:09] LABS: Absolute Lymphocytes (CBC) 2.2 K/uL (0.7-4.9); Hematocrit 37.4 % (36.0-45.0); Hemoglobin 12.4 g/dL (12.0-15.0); MCH 32.6 pg (27.0-35.0); MCHC 33.2 g/dL (32.0-36.0); MCV 98.1 fL (80-100); MPV 7.8 fL (7.6-11.3); Nucleated RBC Absolute Count 0.0 (0-0); Nucleated Red Blood Cells % 0.1 % (0-0); RBC Red Blood Cell Count 3.81 M/uL (3.86-4.86); White Blood Count 5.60 thou/uL (4.3-10.9)
[2025-05-12 12:14] LABS: ALT/SGPT 54.0 U/L (13-56); AST/SGOT 98.0 U/L (15-37); Albumin 2.5 g/dL (3.4-5.0); Albumin/Globulin Ratio 0.8 (1.1-1.8); Alkaline Phosphatase 135.0 U/L (45-117); Anion Gap 8.2 mEq/L (5.0-15.0); BUN Blood Urea Nitrogen 18.0 mg/dL (7-18); Bilirubin Indirect, Calculated 0.7 mg/dL (0.2-0.8); Globulin 3.2 g/dL (2.3-3.5); Glucose Level 114.0 mg/dL (74-106); Potassium 4.2 mEq/L (3.5-5.1)
[2025-05-12] MEDS ORDERED: ONDANSETRON 4 MG/2 ML VIAL ONE (12:15)
--- NOTE | 2025-05-12 12:34 | RAD REPORT ---
EXAM: CT brain without contrast HISTORY: dizziness, AMS COMPARISON: 04/27/2025 TECHNIQUE: Multiple contiguous axial images were obtained and a CT of the brain without contrast. Sag ittal and coronal reformats were performed. One or more of the following dose reduction techniques were used: Automated exposure control, adjust ment of the mA and/or kV according to patient size, and/or iterative reconstruction. FINDINGS: No evidence of hydrocephalus, intracranial hemorrhage, or extra-axial fluid collection. Moderate brain atrophy with moderate periventricular and deep white matter chronic microvascular isc hemic changes present. No evidence of midline shift or areas of brain edema. The calvarium is intact. The visualized paranasal sinuses and mastoid air cells are essentially clear . IMPRESSION: No evidence of acute intracranial abnormality.
--- NOTE | 2025-05-12 14:08 | EDPHYS ---
Physician Documentation [facility] Name: Osiris Barrow Age: 84 yrs Sex: Female : 1940 Arrival Date: 05/12/2025 Time: 11:38 Bed 3 Private MD: ED Physician Niall Hernandez HPI: 05/12 13:58 This 84 yrs old Female presents to ER via EMS with complaints of Altered Mental Status. rn 13:58 The patient presents with confusion. The patient has experienced similar episodes in rn the past. 14:02 Patient presents by EMS for altered mental status, dizziness for the last 3 days. rn Patient has nonalcoholic cirrhosis of liver. Denies focal pain. No recent fall or head injury. No focal weakness or numbness.. Historical: - Allergies: 11:41 No Known Allergies; hb - PMHx: :41 cirrhosis of liver; diabetes mellitus ; resolved; Gout; Hypertensive disorder; hb Hypothyroidism; - Immunization history:: Adult Immunizations up to date. - Infectious Disease History:: Denies. - Social history:: Smoking status: Patient denies any tobacco usage or history of. - Family history:: not pertinent. - Hospitalizations: : No recent hospitalization is reported. ROS: 14:02 Constitutional: Negative for fever, chills, and weight loss, Cardiovascular: Negative rn for chest pain, palpitations, and edema, Respiratory: Negative for shortness of breath, cough, wheezing, and pleuritic chest pain, Abdomen/GI: Negative for abdominal pain, nausea, vomiting, diarrhea, and constipation, Back: Negative for injury and pain, : Negative for injury, bleeding, discharge, and swelling, MS/Extremity: Negative for injury and deformity, Skin: Negative for injury, rash, and discoloration, Neuro: Positive for confusion and generalized weakness Exam: 14:02 Constitutional: This is a well developed, well nourished patient who is awake, alert, rn and in no acute distress. ENT: Dry mucous membranes Cardiovascular: Regular rate and rhythm. No pulse deficits. Respiratory: No increased work of breathing, no retractions or nasal flaring. Abdomen/GI: Soft, non-tender Neuro: Awake and alert, GCS 15, oriented to person, place, time. Cranial nerves II-XII grossly intact. Motor strength 4/5 in all extremities. Sensory grossly intact. Cerebellar exam normal. 17:51 ECG was reviewed by the Attending Physician. rn Vital Signs: 11:39 BP 167 / 60; Pulse 74; Resp 14; Temp 98.3; Pulse Ox 96% on R/A; Weight 82.55 kg; Height hb 5 ft. 5 in. ; Pain 0/10; 12:55 BP 143 / 59; Pulse 71; Resp 16; Pulse Ox 96% on R/A; dd2 13:27 BP 139 / 60; Pulse 71; Resp 15; Pulse Ox 98% ; hb 15:42 BP 156 / 58; Pulse 70; Resp 16; Pulse Ox 97% on R/A; dd2 11:39 Body Mass Index 30.29 (82.55 kg, 165.1 cm) hb 11:39 Pain Scale: Adult hb MDM: 11:38 Medical Screening Exam initiated rn 14:02 Differential Diagnosis: CVA, electrolyte abnormality, intracranial bleed, UTI, volume rn depletion. Data reviewed: vital signs, nurses notes, lab test result(s), radiologic studies, CT scan, and as a result, I will admit patient. Consideration of Admission/Observation Patient was admitted/placed on observation. Escalation of care including admission/observation considered. Independent interpretation of the following test(s) in the Emergency Department CT Scan: My interpretation is CT head images negative for hemorrhage per my interpretation. Care significantly affected by the following chronic conditions: Diabetes, Hypertension, Cirrhosis. Counseling: I had a detailed discussion with the patient and/or guardian regarding the historical points, exam findings, and any diagnostic results supporting the discharge/admit diagnosis, lab results, radiology results, the need for further work-up and treatment in the hospital. Response to treatment: the patient's symptoms have mildly improved after treatment. Special discussion:. 05/12 11:39 Order name: CBC with Diff; Complete Time: 12:13 rn 05/12 11:39 Order name: Basic Metabolic Panel; Complete Time: 12:59 rn 05/12 11:39 Order name: LFT's; Complete Time: 12:59 rn 05/12 11:39 Order name: AMMONIA; Complete Time: 12:13 rn 05/12 15:15 Order name: Ammonia EDMS 05/12 15:15 Order name: Ammonia EDMS 05/12 15:15 Order name: Ammonia EDMS 05/12 15:15 Order name: Ammonia EDMS 05/12 15:15 Order name: Basic Metabolic Panel EDMS 05/12 15:15 Order name: Basic Metabolic Panel EDMS 05/12 15:15 Order name: Basic Metabolic Panel EDMS 05/12 15:15 Order name: Basic Metabolic Panel EDMS 05/12 15:15 Order name: CBC with Automated Diff EDMS 05/12 15:15 Order name: CBC with Automated Diff EDMS 05/12 15:15 Order name: CBC with Automated Diff EDMS 05/12 15:15 Order name: Lipid Profile EDMS 05/12 15:15 Order name: Lipid Profile EDMS 05/12 15:15 Order name: Magnesium EDMS 05/12 15:15 Order name: Magnesium EDMS 05/12 15:15 Order name: Magnesium EDMS 05/12 15:15 Order name: Magnesium EDMS 05/12 15:15 Order name: Phosphorus EDMS 05/12 15:15 Order name: Phosphorus EDMS 05/12 15:15 Order name: Phosphorus EDMS 05/12 15:15 Order name: Phosphorus EDMS 05/12 15:15 Order name: Troponin High Sensitivity EDMS 05/12 15:15 Order name: Troponin High Sensitivity EDMS 05/12 15:15 Order name: Troponin High Sensitivity EDMS 05/12 15:15 Order name: CBC with Automated Diff EDMS 05/12 15:16 Order name: Troponin High Sensitivity EDMS 05/12 11:39 Order name: CT Head Brain wo Cont; Complete Time: 12:59 rn 05/12 15:22 Order name: Extrem Venous W Compression Ahsan rn 05/12 15:23 Order name: Brain Wo Cont EDMS 05/12 16:18 Order name: US EDMS 05/12 11:39 Order name: IV Start; Complete Time: 11:51 rn 05/12 11:39 Order name: Cardiac monitoring; Complete Time: 11:43 rn 05/12 11:39 Order name: O2 Sat Monitoring; Complete Time: 11:43 rn 05/12 11:39 Order name: EKG - Nurse/Tech; Complete Time: 12:23 rn EC:51 Rate is 73 beats/min. Rhythm is regular. QRS [place] is Normal. OK interval is normal. QRS rn interval is normal. QT interval is normal. No Q waves. T waves are Normal. No ST changes noted. Clinical impression: NSR w/ Non-specific ST/T Changes. Interpreted by me. Reviewed by me. Administered Medications: 12:23 Drug: Ondansetron IVP 4 mg IVP once; over 2 minutes Route: IVP; Site: right antecubital;dd2 12:38 Follow up: Response: No adverse reaction dd2 14:47 Drug: NS 0.9% IV 500 ml 500 ml IV at 1 bolus once; to be given as a bolus over 30 dd2 minutes Volume: 500 ml; Route: IV; Rate: 1 bolus; Site: right antecubital; 15:20 Follow up: IV Status: Completed infusion dd2 15:44 Not Given (Patient Refused; PT REFUSED DUE TO N/Vv): [id number] grams 15 ml PO once dd2 Disposition Summary: 05/12/25 14:07 Hospitalization Ordered Notes: Hospitalization Status: Inpatient Admission rn Provider: Efren Shrestha rn Location: Telemetry/MedSurg (Inpatient) rn Condition: Stable rn Problem: new rn Symptoms: have improved rn Bed/Room Type: Standard rn Room Assignment: [facility](05/12/25 15:24) eb Diagnosis - Hepatic Encephalopathy rn - Dehydration rn - Muscle weakness (generalized) rn Forms: - Medication Reconciliation Form rn - SBAR form rn - Leadership Thank You Letter rn Signatures: Dispatcher [employer] EDNiall Bishop MD MD rn Baxter, Heather, RN RN hb Botello, Elizabeth eb DAVIS, DIANA, RN RN dd2 Corrections: (The following items were deleted from the chart) 11:39 11:39 Head Brain Wo Cont+CT.RAD.BRZ ordered. EDMS EDMS 11:40 11:40 CBC+H.LAB.BRZ ordered. EDMS EDMS 11:40 11:40 BASIC METABOLIC PANEL+C.LAB.BRZ ordered. EDMS EDMS 11:40 11:40 HEPATIC FUNCTION+C.LAB.BRZ ordered. EDMS EDMS 11:40 11:40 AMMONIA+C.LAB.BRZ ordered. EDMS EDMS 11:40 11:40 UA Rfx Mario Cult if indicated+U.LAB.BRZ ordered. EDMS EDMS 15:24 14:07 rn eb
--- NOTE | 2025-05-12 14:08 | ER ---
Nurse's Notes [facility] Name: Osiris Barrow Age: 84 yrs Sex: Female : 1940 Arrival Date: 05/12/2025 Time: 11:38 Bed 3 Private MD: Diagnosis: Hepatic Encephalopathy;Dehydration;Muscle weakness (generalized) Presentation: 05/12 11:39 Chief complaint: EMS states: Family reports confusion and slurred speech since Thursday. Hx of cirrhosis and HTN. GCS 15, VAN Negative, FSBS 126. Coronavirus screen: At this time, the client does not indicate any symptoms associated with coronavirus-19. Ebola Screen: No symptoms or risks identified at this time. Initial Sepsis Screen: Does the patient meet any 2 criteria? No. Patient's initial sepsis screen is negative. Does the patient have a suspected source of infection? No. Patient's initial sepsis screen is negative. Risk Assessment: Do you want to hurt yourself or someone else? Patient reports no desire to harm self or others. Onset of symptoms was May 10, 2025. 11:39 Method Of Arrival: EMS: [facility] 11:39 Acuity: BOB 3 hb Triage Assessment: 11:42 General: Appears in no apparent distress. Behavior is calm, cooperative. Pain: Denies hb pain. EENT: No signs and/or symptoms were reported regarding the EENT system. Neuro: Level of Consciousness is awake, alert, obeys commands, Oriented to person, place, time, situation, Speech is slurred. Cardiovascular: Patient's skin is warm and dry. Rhythm is regular. Respiratory: Respiratory effort is even, unlabored, Respiratory pattern is regular, symmetrical. GI: No signs and/or symptoms were reported involving the gastrointestinal system. : No signs and/or symptoms were reported regarding the genitourinary system. Derm: Skin is pink, warm \T\ dry. Musculoskeletal: No signs and/or symptoms reported regarding the musculoskeletal system. Historical: - Allergies: 11:41 No Known Allergies; hb - PMHx: 11:41 cirrhosis of liver; diabetes mellitus ; resolved; Gout; Hypertensive disorder; hb Hypothyroidism; - Immunization history:: Adult Immunizations up to date. - Infectious Disease History:: Denies. - Social history:: Smoking status: Patient denies any tobacco usage or history of. - Family history:: not pertinent. - Hospitalizations: : No recent hospitalization is reported. Screenin:42 [facility] ED Fall Risk Assessment (Adult) History of falling in the last 3 months, hb including since admission Yes- single mechanical fall (1 pt) Confusion or Disorientation No (0 pts) Intoxicated or Sedated No (0 pts) Impaired Gait Yes (1 pt) Mobility Assist Device Used Yes (1 pt) Altered Elimination Yes (1 pt) Score/Fall Risk Level 3 or more points = High Risk Oriented to surroundings, Maintained a safe environment, Educated pt \T\ family on fall prevention, incl call for assistance when getting out of bed. Abuse screen: Denies threats or abuse. Denies injuries from another. Nutritional screening: No deficits noted. Tuberculosis screening: No symptoms or risk factors identified. Assessment: 11:42 General: See triage assessment . hb 13:27 Reassessment: Patient appears in no apparent distress at this time. Patient and/or hb family updated on plan of care and expected duration. Pain level reassessed. Patient is alert, oriented x 3, equal unlabored respirations, skin warm/dry/pink. 14:30 Reassessment: Patient appears in no apparent distress at this time. Patient and/or hb family updated on plan of care and expected duration. Pain level reassessed. Patient is alert, oriented x 3, equal unlabored respirations, skin warm/dry/pink. 15:30 Reassessment: Patient appears in no apparent distress at this time. Patient and/or hb family updated on plan of care and expected duration. Pain level reassessed. Patient is alert, oriented x 3, equal unlabored respirations, skin warm/dry/pink. 16:30 Reassessment: Patient appears in no apparent distress at this time. Patient and/or hb family updated on plan of care and expected duration. Pain level reassessed. Patient is alert, oriented x 3, equal unlabored respirations, skin warm/dry/pink. Vital Signs: 11:39 BP 167 / 60; Pulse 74; Resp 14; Temp 98.3; Pulse Ox 96% on R/A; Weight 82.55 kg; Height hb 5 ft. 5 in. ; Pain 0/10; 12:55 BP 143 / 59; Pulse 71; Resp 16; Pulse Ox 96% on R/A; dd2 13:27 BP 139 / 60; Pulse 71; Resp 15; Pulse Ox 98% ; hb 15:42 BP 156 / 58; Pulse 70; Resp 16; Pulse Ox 97% on R/A; dd2 11:39 Body Mass Index 30.29 (82.55 kg, 165.1 cm) hb 11:39 Pain Scale: Adult hb ED Course: 11:38 Patient arrived in ED. bc6 11:38 Niall Hernandez MD is Attending Physician. rn 11:41 Triage completed. hb 11:41 Arm band placed on left wrist. hb 11:41 Patient has correct armband on for positive identification. Bed in low position. Call hb light in reach. Provided Education on: call light, tests, result times. Client placed on continuous cardiac and pulse oximetry monitoring. NIBP monitoring applied. ekg monitor tech on. Pulse ox on. NIBP on. 11:51 Initial lab(s) drawn, by me, sent to lab. Inserted saline lock: 20 gauge in right dd2 antecubital area, using aseptic technique. Blood collected. Flushed with 10 mL NS. Patient maintains SpO2 saturation greater than 95% on room air. 12:05 CT Head Brain wo Cont In Process Unspecified. EDMS 12:23 No provider procedures requiring assistance completed. EKG done, by ED staff, reviewed dd2 by Niall Hernandez MD. 14:07 Efren Shrestha MD is Hospitalizing Provider. rn 16:36 Patient admitted, IV remains in place. hb Administered Medications: 12:23 Drug: Ondansetron IVP 4 mg IVP once; over 2 minutes Route: IVP; Site: right antecubital;dd2 12:38 Follow up: Response: No adverse reaction dd2 14:47 Drug: NS 0.9% IV 500 ml 500 ml IV at 1 bolus once; to be given as a bolus over 30 dd2 minutes Volume: 500 ml; Route: IV; Rate: 1 bolus; Site: right antecubital; 15:20 Follow up: IV Status: Completed infusion dd2 15:44 Not Given (Patient Refused; PT REFUSED DUE TO N/Vv): [id number] grams 15 ml PO once dd2 Medication: 11:42 VIS not applicable for this client. hb Outcome: 14:07 Decision to Hospitalize by Provider. rn 16:36 Admitted to Med/surg accompanied by nurse, room 211, hb 16:36 Condition: stable 16:36 Instructed on the need for admit, Demonstrated understanding of instructions, 16:36 Patient left the ED. hb Signatures: Dispatcher [employer] EDMS Niall Hernandez MD MD rn Baxter, Heather RN RN Cori Ayala 6 AAMIR ODEN RN RN dd2
[2025-05-12] MEDS ORDERED: NA CHLORIDE 0.9% 500 ML ONE (14:40)
--- NOTE | 2025-05-12 15:20 | P.HP ---
Certification for Inpatient Patient admitted to: Observation With expected LOS: <2 Midnights Patient will require the following post-hospital care: None Practitioner: I am a practitioner with admitting privileges, knowledge of patient current condition, hospital course, and medical plan of care. Services: Services provided to patient in accordance with Admission requirements found in Title 42 Section 412.3 of the Code of Federal Regulations Patient History Date of Service: 05/12/25 Reason for admission: Acute hepatic encephalopathy History of Present Illness: Osiris Barrow is an 84 year old female with pmhx hypothyroidism, DM, GOUT, HTN, cirrhosis of the liver who presents to the ED with confusion, dizziness, generalized weakness. Family at the bedside reports she had a right wrist surgery with Dr. Thomas on Thursday and was able to go out to eat at a restaurant on Thursday, functioning well until yesterday, 05/11. She has become confused, dizzy, and is not interested in eating. She was on scheduled norco s/p right wrist surgery in preparation for the anesthetic block to wear off. The family has been in communication with Dr. Thomas who recommended taking half of the norco and then recommended stopping the norco as she was not having pain. Family reports, confusion and dizziness continued and they brought her to the ED. Laboratory evaluation significant for T. bili 1.2, direct bili 0.5, AST 98, alk phos 135, ammonia 152. CT head reports "No evidence of hydrocephalus, intracranial hemorrhage, or extra-axial fluid collection. Moderate brain atrophy with moderate periventricular and deep white matter chronic microvascular ischemic changes present. No evidence of midline shift or areas of brain edema. The calvarium is intact. The visualized paranasal sinuses and mastoid air cells are essentially clear" Osiris will be admitted to hospitalist service for further evaluation of Acute hepatic encephalopathy 2/2 cirrhosis of the liver. Allergies No Known Allergies Allergy (Verified 05/09/25 07:14) Home Medications: Allopurinol 100 mg PO DAILY 05/04/25 Ascorbic Acid [Vitamin C] 500 mg PO DAILY 05/04/25 Cholecalciferol (Vitamin D3) [Vitamin D3] 5,000 unit PO DAILY 05/04/25 Cinnamon Bark [Cinnamon] 500 mg PO DAILY 05/04/25 Cranberry 500 mg PO DAILY 05/04/25 Furosemide [Lasix] 20 mg PO DAILY 05/04/25 Hepagard 1 tab PO DAILY 05/04/25 Letrozole [Femara] 2.5 mg PO DAILY 05/04/25 Levothyroxine Sodium 50 mcg PO DAILY 05/04/25 Losartan Potassium [Cozaar] 50 mg PO DAILY 05/04/25 Pravastatin Sodium 10 mg PO DAILY 05/04/25 Solifenacin Succinate 5 mg PO DAILY 05/04/25 Tramadol HCl [Ultram] 50 mg PO Q8HP PRN 05/04/25 Triamcinolone 0.1% Crm [Kenalog 0.1% Cream] 15 appl TOP DAILY 05/04/25 Turmeric 400 mg PO DAILY 05/04/25 Zolpidem Tartrate [Ambien] 10 mg PO BEDTIME 05/04/25 - Past Medical/Surgical History -: Hypothyroidism -: Diabetes mellitus-resolved -: HTN- resolved -: Gout -: GERD -: Cirrhosis of the liver -: Right wrist - Social History Smoking Status: Former smoker Alcohol use: No CD- Drugs: No Review of Systems Other: Per HPI Physical Examination - Physical Exam General: Alert, Oriented x3 HEENT: Atraumatic, Normocephalic Neck: Supple, 2+ carotid pulse no bruit Respiratory: Clear to auscultation bilaterally, Normal air movement Cardiovascular: Regular rate/rhythm, Systolic murmur Gastrointestinal: Normal bowel sounds, Soft and benign Musculoskeletal: No clubbing Integumentary: No rashes Neurological: Normal speech - Studies Laboratory Data (last 24 hrs) 05/12/25 05/12/25 11:47 11:47 WBC 5.60 Hgb 12.4 Hct 37.4 Plt Count 116 L Sodium 140 Potassium 4.2 BUN 18 Creatinine 0.74 Glucose 114 H Total Bilirubin 1.2 H AST 98 H ALT 54 Alkaline Phosphatase 135 H Assessment and Plan - Plan Assessment and Plan Acute hepatic encephalopathy 2/2 liver cirrhosis Elevated liver enzymes Hyperammonemia -lactulose x 2 -monitor ammonia in the AM -lipid panel -physical therapy -supportive care -gentle IVF - CT head negative, MRI ordered - Serial troponin pending - Continuous telemetry - Orthostatic vitals Hypertension -not currently being treated -Hydralazine PRN for SBP> 180 Hypothyroidism -continue home medications DVT PPx SCDs due to cirrhosis and history of bleeding risk DNR LOS 24-hour OBS Discharge Plan: Home Plan to discharge in: 24 Hours - Advance Directives Does patient have a Living Will: No Does patient have a Durable POA for Healthcare: No Time Spent Managing Pts Care (In Minutes): 65
--- NOTE | 2025-05-12 16:17 | RAD REPORT ---
EXAMINATION: US LOWER EXTREMITY VENOUS DOPPLER BILATERAL CLINICAL INDICATION: Female, 84 years old.PAIN TECHNIQUE: Complete bilateral duplex sonography of the lower extremity veins was performed. The exami nation included compression for vein patency, color Doppler imaging and flow augmentation in response to distal compression of the distal external iliac, common femoral, femoral, popliteal, kirk payal, tibial and great saphenous veins. [id number]. COMPARISON: No prior exams FINDINGS: Duplex sonography imaging demonstrates all deep examined to be fully compressible with spontaneous, p hasic and augmented flow bilaterally. IMPRESSION: No evidence of deep venous thrombosis seen in either lower extremity.
[2025-05-12] MEDS: LACTULOSE 20 GM/30 ML UCUP PO ONE ×2 (17:53→18:01)
[2025-05-12] MEDS: NA CHLORIDE 0.9% 1,000 ML IV SCH (18:01)
[2025-05-12] MEDS ORDERED: HYDRALAZINE HCL 20 MG/ML VIAL IV PRN (18:31)
[2025-05-12 18:49] VITALS: BMI 28.6
[2025-05-12] MEDS: SOLIFENACIN SUCCIN 5 MG TAB PO SCH (21:00)
[2025-05-12] MEDS: LEVOTHYROXINE SOD 0.05 MG TABLET PO SCH (21:16)
[2025-05-12] MEDS: ATORVASTATIN 10 MG TAB PO SCH (21:16)
[2025-05-12] MEDS: ZOLPIDEM TARTRATE 10 MG TABLET PO SCH (21:16)
[2025-05-12 21:32] LABS: Urine Microscopic Reflex YN NO UMIC
[2025-05-13 06:21] LABS: Absolute Lymphocytes (CBC) 1.6 K/uL (0.7-4.9); Hematocrit 34.5 % (36.0-45.0); Hemoglobin 12.0 g/dL (12.0-15.0); MCH 33.5 pg (27.0-35.0); MCHC 34.7 g/dL (32.0-36.0); MCV 96.4 fL (80-100); MPV 8.1 fL (7.6-11.3); Nucleated RBC Absolute Count 0.0 (0-0); Nucleated Red Blood Cells % 0.2 % (0-0); RBC Red Blood Cell Count 3.58 M/uL (3.86-4.86); White Blood Count 4.70 thou/uL (4.3-10.9)
[2025-05-13 06:43] LABS: Anion Gap 8.2 mEq/L (5.0-15.0); BUN Blood Urea Nitrogen 15.0 mg/dL (7-18); Glucose Level 89.0 mg/dL (74-106); HDL Cholesterol 36.0 mg/dL (40-60); LDL Cholesterol, Calculated 74.0 mg/dL (<130); LDL Cholesterol,Calc NonReport 74.0
[2025-05-13 07:01] LABS: Magnesium 1.8 mg/dL (1.6-2.4); Potassium 4.2 mEq/L (3.5-5.1)
--- NOTE | 2025-05-13 08:23 | P.PN ---
Date of Service: 05/13/25 Subjective Awake conversing well reports she does not know if she feels better ambulated to the restroom with assistance to keep her steady ROS 10 point ROS as noted above, otherwise negative Physical Exam General: Alert, Oriented x3, NAD HEENT: Atraumatic, Normocephalic Neck: Supple, 2+ carotid pulse no bruit Respiratory: Clear BBS, Normal air movement, on RA Cardiovascular: Normal sinus rhythm, S1 S2 present, Systolic murmur Gastrointestinal: Normal bowel sounds, Soft and benign on palpation Musculoskeletal: No clubbing Integumentary: No rashes Neurological: Normal speech Vitals Reviewed Problem list Acute hepatic encephalopathy 2/2 liver cirrhosis Elevated liver enzymes Hyperammonemia Hypertension Hypothyroidism Assessment and Plan Acute hepatic encephalopathy 2/2 liver cirrhosis Elevated liver enzymes Hyperammonemia -lactulose x 2 given 05/12 - Ammonia within normal -lipid panel within normal range -physical therapy -supportive care -gentle IVF -CT head negative, MRI unable to obtain - Troponin trended flat -Continuous telemetry with no acute events -Orthostatic vitals pending -UA negative for infectious process Hypertension -not currently being treatedat home -Hydralazine PRN for SBP> 180 -Added lisinopril 5 mg this morning 05/13 Hypothyroidism -continue home medications DVT PPx SCDs due to cirrhosis and history of bleeding risk DNR LOS 24-hour OBS Discharge Plan: Home Plan to discharge in: 24 Hours Time Spent Managing Pts Care (In Minutes): 35
[2025-05-13] MEDS: HOME MED 1 EA UNK (Turmeric [Turmeric] 400 MG Capsule) PO SCH (09:00)
[2025-05-13] MEDS: ASCORBIC ACID 500 MG TABLET PO SCH (09:45)
[2025-05-13] MEDS: VITAMIN D 5,000 UNIT CAP PO SCH (09:46)
[2025-05-13 11:45] LABS: Blood Morphology Comment NOT SEEN (NOT SEEN); White Blood Cell Scan OK (OK)
--- NOTE | 2025-05-13 19:12 | RAD REPORT ---
EXAMINATION: CT ABDOMEN AND PELVIS WITHOUT CONTRAST CLINICAL INDICATION: Sharp pain to epigastric region TECHNIQUE: CT abdomen and pelvis was performed, without IV contrast, as per department protocol. Axia l, sagittal and coronal reconstructions were obtained. One or more of the following dose reduction techniques were used: Automated exposure control, adjustment of the mA and kV according to the patien t size, and iterative reconstruction. Unless otherwise specified, incidental findings do not require dedicated imaging follow-up. COMPARISON: No prior exam. FINDINGS: The lack of intravenous contrast limits the sensitivity of this exam for evaluation of solid visceral organs, vascular structures, and retroperitoneum. LOWER CHEST: The visualized lung bases are clear. LIVER:Moderate liver cirrhosis is seen with trace fluid along the right hepatic edge. Cholelithiasis. SPLEEN: Normal size. No focal lesion. PANCREAS: No mass, ductal dilation, or rios-pancreatic fluid. ADRENALS: Normal; no mass. KIDNEYS AND URETERS: Normal size and contour. No hydronephrosis. URINARY BLADDER: Normal contour. GASTROINTESTINAL TRACT: No evidence of bowel obstruction, significant free fluid, free air or abscess . Prominent sigmoid diverticulosis coli. Moderate stool is present throughout the colon. APPENDIX: Appendix not visualized, but no inflammatory changes in region of appendix. LYMPH NODES: No lymphadenopathy. MUSCULOSKELETAL: Moderate lower lumbar degenerative changes. IMPRESSION: No acute abnormalities in the abdomen or pelvis, with evaluation limited by lack of IV contrast. Moderate liver cirrhosis. Cholelithiasis.
[2025-05-13] MEDS: VESICARE 5 MG PO SCH (20:33)
[2025-05-14] MEDS: LEVOTHYROXINE SOD 0.05 MG TABLET PO SCH (06:16)
[2025-05-14 06:54] LABS: Anion Gap 8.1 mEq/L (5.0-15.0); BUN Blood Urea Nitrogen 16.0 mg/dL (7-18); Glucose Level 93.0 mg/dL (74-106); Magnesium 1.8 mg/dL (1.6-2.4); Potassium 4.1 mEq/L (3.5-5.1)
[2025-05-14 08:11] LABS: Absolute Lymphocytes (CBC) 1.5 K/uL (0.7-4.9); Hematocrit 32.2 % (36.0-45.0); Hemoglobin 11.1 g/dL (12.0-15.0); MCH 33.3 pg (27.0-35.0); MCHC 34.6 g/dL (32.0-36.0); MCV 96.3 fL (80-100); MPV 8.2 fL (7.6-11.3); Nucleated RBC Absolute Count 0.0 (0-0); Nucleated Red Blood Cells % 0.1 % (0-0); RBC Red Blood Cell Count 3.34 M/uL (3.86-4.86); White Blood Count 4.40 thou/uL (4.3-10.9)
[2025-05-14 08:38] VITALS: BP 131/62; TEMP 968.6
[2025-05-14] MEDS: MAGNESIUM SULFATE 1 gm IVPB 1 GM/100 ML BAG IV ONE (09:00)
--- NOTE | 2025-05-14 09:35 | P.DS ---
Admission Date: 05/13/25 Discharge Date: 05/14/25 Disposition: ROUTINE DISCHARGE Discharge Condition: GOOD Reason for Admission: Acute hepatic encephalopathy Brief History of Present Illness: Diagnosis Acute hepatic encephalopathy 2/2 liver cirrhosis Elevated liver enzymes Hyperammonemia Hypertension Hypothyroidism [facility] 05/12/25 Osiris Barrow is an 84 year old female with pmhx hypothyroidism, DM, GOUT, HTN, cirrhosis of the liver who presents to the ED with confusion, dizziness, generalized weakness. Family at the bedside reports she had a right wrist surgery with Dr. Thomas on Thursday and was able to go out to eat at a restaurant on Thursday, functioning well until yesterday, 05/11. She has become confused, dizzy, and is not interested in eating. She was on scheduled norco s/p right wrist surgery in preparation for the anesthetic block to wear off. The family has been in communication with Dr. Thomas who recommended taking half of the norco and then recommended stopping the norco as she was not having pain. Family reports, confusion and dizziness continued and they brought her to the ED. Laboratory evaluation significant for T. bili 1.2, direct bili 0.5, AST 98, alk phos 135, ammonia 152. CT head reports "No evidence of hydrocephalus, intracranial hemorrhage, or extra-axial fluid collection. Moderate brain atrophy with moderate periventricular and deep white matter chronic microvascular ischemic changes present. No evidence of midline shift or areas of brain edema. The calvarium is intact. The visualized paranasal sinuses and mastoid air cells are essentially clear" Osiris will be admitted to hospitalist service for further evaluation of Acute hepatic encephalopathy 2/2 cirrhosis of the liver. Hospital Course: Osiris was admitted and evaluated for generalized weakness, confusion, and dizziness. On evaluation was found to have elevated ammonia and was treated with Kayexalate as well as rifaximin. Ammonia Within normal limits. Osiris is seen on morning rounds 05/13/2025 in complaint of visualization disturbances, specifically seen blue dots. Dr. Garcia was consulted and recommended follow- up outpatient and outpatient MRI. Osiris is seen on morning rounds this morning, hemodynamically stable, ambulating independently, strength has returned, she was seen by PT who believes she is at baseline and stable to ambulate independently. She will be discharged home with family support Physical Exam General: AAO x3, NAD, sitting in bedside chair HEENT: Atraumatic, Normocephalic Neck: Supple, 2+ carotid pulse no bruit Respiratory: Nonlabored breathing, on room air Cardiovascular: Regular rate and rhythm, S1 S2 present, Systolic murmur Gastrointestinal: Normal bowel sounds, Soft and benign on palpation Musculoskeletal: No clubbing Integumentary: No rashes Neurological: Normal speech, normal gait Vital Signs/Physical Exam: Temp Pulse Resp BP Pulse Ox 968.6 F H 76 20 131/62 98 05/14/25 08:00 05/14/25 08:00 05/14/25 08:00 05/14/25 08:00 05/14/25 08:00 Laboratory Data at Discharge: WBC 4.40 thou/uL (4.3-10.9) 05/14/25 05:58 Hgb 11.1 g/dL (12.0-15.0) L 05/14/25 05:58 Hct 32.2 % (36.0-45.0) L 05/14/25 05:58 Plt Count 103 thou/uL (152-406) L 05/14/25 05:58 Sodium 141 mEq/L (136-145) 05/14/25 05:37 Potassium 4.1 mEq/L (3.5-5.1) 05/14/25 05:37 BUN 16 mg/dL (7-18) 05/14/25 05:37 Creatinine 0.71 mg/dL (0.55-1.02) 05/14/25 05:37 Glucose 93 mg/dL (74-106) 05/14/25 05:37 Phosphorus 2.9 mg/dL (2.5-4.9) 05/14/25 05:37 Magnesium 1.8 mg/dL (1.6-2.4) 05/14/25 05:37 Total Bilirubin 1.2 mg/dL (0.2-1.0) H 05/12/25 11:47 AST 98 U/L (15-37) H 05/12/25 11:47 ALT 54 U/L (13-56) 05/12/25 11:47 Alkaline Phosphatase 135 U/L (45-117) H 05/12/25 11:47 Triglycerides 92 mg/dL (<150) 05/13/25 05:56 Cholesterol 128 mg/dL (<200) 05/13/25 05:56 HDL Cholesterol 36 mg/dL (40-60) L 05/13/25 05:56 Cholesterol/HDL Ratio 3.56 05/13/25 05:56 Lipase 35 U/L (13-75) 05/13/25 14:00 Home Medications: Allopurinol 100 mg PO DAILY 05/04/25 Ascorbic Acid [Vitamin C*] 500 mg PO DAILY 05/04/25 Cholecalciferol (Vitamin D3) [Vitamin D3] 5,000 unit PO DAILY 05/04/25 Cinnamon Bark [Cinnamon] 500 mg PO DAILY 05/04/25 Cranberry 500 mg PO DAILY 05/04/25 Furosemide [Lasix*] 20 mg PO PRN 05/04/25 Hepagard 1 tab PO DAILY 05/04/25 Letrozole [Femara*] 2.5 mg PO DAILY 05/04/25 Levothyroxine Sodium 50 mcg PO BEDTIME 05/04/25 Pravastatin Sodium 10 mg PO BEDTIME 05/04/25 Solifenacin Succinate 5 mg PO BEDTIME 05/04/25 Turmeric 400 mg PO DAILY 05/04/25 Zolpidem Tartrate [Ambien*] 10 mg PO BEDTIME 05/04/25 lisinopriL [Prinivil*] 5 mg PO DAILY 30 Days #30 tab 05/14/25 New Medications: lisinopriL [Prinivil*] 5 mg PO DAILY 30 Days #30 tab Physician Discharge Instructions: 1. Please call and schedule a follow-up appointment with your PCP in 3-5 days - Please follow-up with your PCP for medication refills/adjustments -Monitor for need of blood pressure medication, started lisinopril 5 mg daily -Have your doctor check your ammonia level regularly to determine the need for rifaximin which you have taken inpatient. 2. Please call and schedule a follow-up appointment with Dr. Garcia, he has been contacted concerning your visual disturbance of seeing blue floaty's. 3. Continue regular diet 4. activity restrictions fall precautions 5. Return to the ED if symptoms worsen New medications Lisinopril 5 mg daily x 30 days, please check your blood pressure twice daily, blood pressure was severely elevated during admission. Diet: Regular Activity: Fall precautions Followup: Alexander Wynn, [Primary Care Provider] - Antonio Garcia MD [ASSOCIATE-ACTIVE - CAN ADMIT] -
[2025-05-14] MEDS: ATORVASTATIN 10 MG TAB PO SCH (09:57)
== END 2025-05-14 11:36 | disposition home or self-care (01) | DRG 442 ==
LOC: ER 11:43 → ERHOLD 15:09 → 2ND 16:00 → OBSVTOIN 05-13 14:35
PROVIDERS: ADMIT Hospitalist; ATTEND Internal Medicine Sleep Medicine
DX: K76.82 Hepatic encephalopathy (principal); E72.20 Disorder of urea cycle metabolism, unspecified; K74.60 Unspecified cirrhosis of liver; E86.0 Dehydration; E03.9 Hypothyroidism, unspecified; I10 Essential (primary) hypertension; E11.9 Type 2 diabetes mellitus without complications; Z79.890 Hormone replacement therapy; Z79.899 Other long term (current) drug therapy; Z87.891 Personal history of nicotine dependence
CPT/HCPCS: 36415; 70450; 74176; 80048; 80061; 80076; 81003; 82140; 83690; 83735; 84100; 84484; 85025; 93005; 93970; 96361; 96374; 97116; 97161; 97530; 99285; J2405; J7030; J7040